=== PATIENT | female | born 1935 | race Hispanic/Latino ===

== ENCOUNTER 2018-03-04 09:35 | Inpatient (IN) | payer MEDICARE ==
[~2018-03-04] VITALS: Ht 287 cm; Wt 83.0 kg
[~2018-03-04 09:35] MED LIST: AMLO10TA2 PO; ATOR40TA69 PO; BENZ200C53 PO; CHOL500050 PO; CLOP75TA32 PO; DONE5TAB33 PO; HYDR100T27 PO; INSU100V12 SQ; LEVO25TA54 PO; LOSA25TA21 PO; MEMA10TA20 PO; METO25TA6 PO; OMEP40CA37 PO
[2018-03-04 09:49] LABS: BASOPHILS % (AUTO) 0.2 % (0.0-5.0); EOSINOPHILS % (AUTO) 1.5 % (0.0-8.0); HEMATOCRIT 22.7 % (36-48); LYMPHOCYTES % (AUTO) 7.2 % (21.0-51.0); MEAN CORPUSCULAR HEMOGLOBIN 30.1 pg (27.0-33.0); MEAN CORPUSCULAR HGB CONC 33.4 g/dL (32.0-36.0); MEAN CORPUSCULAR VOLUME 90.2 fL (79-99); MONOCYTES % (AUTO) 3.4 % (3.0-13.0); NEUTROPHILS % (AUTO) 87.7 % (40.0-77.0); PLATELET COUNT (AUTO) 150 K/uL (130-400); RED BLOOD CELL COUNT(AUTO) 2.51 MIL/uL (4.00-5.50); WHITE BLOOD COUNT (AUTO) 9.6 K/uL (4.8-10.8)
[2018-03-04 09:52] LABS: APPEARANCE,URINE Cloudy (CLEAR); BILIRUBIN,URINE Negative (NEGATIVE); COLOR,URINE Yellow (YELLOW); GLUCOSE, URINE (UA) Negative (NEGATIVE); KETONES,URINE Negative (NEGATIVE); LEUKOCYTE ESTERASE ,URINE Large (NEGATIVE); NITRATE,URINE Negative (NEGATIVE); OCCULT BLOOD,URINE Negative (NEGATIVE); PROTEIN,URINE POS 2+ (NEGATIVE)
[2018-03-04 09:57] LABS: CREATININE 2.8 mg/dL (0.5-1.5); POTASSIUM 5.5 mmol/L (3.5-5.1)
[2018-03-04 10:08] LABS: ALBUMIN 3.3 g/dL (3.5-5.0); BILIRUBIN,TOTAL 0.9 mg/dL (0.2-1.0); TOTAL PROTEIN, SERUM 7.3 g/dL (6.0-8.3)
[2018-03-04 10:09] LABS: BACTERIA,URINE Moderate /HPF (None Seen); COARSE GRANULAR CASTS,URINE 0-2 /LPF (None Seen); RBC,URINE None Seen /HPF (0-1); SQUAMOUS EPITHELIAL CELL,UR Few /HPF (0-2); WBC,URINE 26-50 /HPF (0-1)
[2018-03-04] MEDS ORDERED: ZOSYN 3.375GM+NS 50ML 50 ML IV ONE (10:15)
[2018-03-04 10:16] LABS: B-TYPE NATRIURETIC PEPTIDE 995 pg/mL (0-100)
[2018-03-04 10:28] LABS: CREATINE KINASE MB 0.7 ng/mL (0.5-3.6)
[2018-03-04] MEDS ORDERED: VANCOMYCIN 1GM+NS 250ML 250 ML IV ONE (11:03)
[2018-03-04] MEDS ORDERED: PANTOPRAZOLE SODIUM 40 MG TABLET.DR PO ONE (11:30)
[2018-03-04] MEDS ORDERED: INSULIN HUMULIN R 100 UNIT/ML 3ML ONE (11:32)
[2018-03-04] MEDS ORDERED: IPRATROPIUM/ALBUTEROL SULFATE 3 ML SOLUTION IH ONE (11:39)
[2018-03-04] MEDS ORDERED: ACETAMINOPHEN 325 MG TAB ONE (12:14)
[2018-03-04] MEDS ORDERED: ACETAMINOPHEN 325 MG TAB PO SCH (12:15)
[2018-03-04 14:33] VITALS: BP 129/67
[2018-03-04] MEDS ORDERED: VIT1TABL75 PO (15:02)
[2018-03-04] MEDS ORDERED: FURO40TA5 PO (15:02)
[2018-03-04] MEDS ORDERED: INSU100V12 SQ ×2 (15:02)
[2018-03-04] MEDS ORDERED: LEVO75 PO (15:02)
[2018-03-04] MEDS ORDERED: LORA10TA7 PO (15:02)
[2018-03-04] MEDS ORDERED: [UNRECOGNIZED DRUG - CODE] PO (15:02)
[2018-03-04] MEDS ORDERED: LEVO50 PO (15:02)
[2018-03-04] MEDS ORDERED: FERS325 PO (15:02)
[2018-03-04] MEDS ORDERED: FURO20TA4 PO (15:02)
[2018-03-04] MEDS ORDERED: ATOR40TA69 PO (15:02)
[2018-03-04] MEDS ORDERED: FOLI1TAB85 PO (15:02)
[2018-03-04 16:29] VITALS: BP 139/74
[2018-03-04] MEDS: INSULIN R PO SS1 SQ SCH ×2 (16:56→21:11)
[2018-03-04] MEDS: IPRATROPIUM/ALBUTEROL SULFATE 3 ML SOLUTION IH SCH ×2 (18:16→23:02)
[2018-03-04 19:00] VITALS: BP 153/62
[2018-03-04] MEDS: ZOSYN 3.375GM+NS 50ML 50 ML IV SCH (20:40)
[2018-03-04 23:00] VITALS: BP 143/57
[2018-03-05 03:00] VITALS: BP 142/56
[2018-03-05] MEDS: INSULIN R PO SS1 SQ SCH ×4 (05:37→23:49)
[2018-03-05 05:50] LABS: HEMATOCRIT 22.1 % (36-48); MEAN CORPUSCULAR HEMOGLOBIN 31.2 pg (27.0-33.0); MEAN CORPUSCULAR HGB CONC 35.7 g/dL (32.0-36.0); MEAN CORPUSCULAR VOLUME 87.4 fL (79-99); PLATELET COUNT (AUTO) 139 K/uL (130-400); RED BLOOD CELL COUNT(AUTO) 2.53 MIL/uL (4.00-5.50); RED CELL DISTRIBUTION WIDTH 18.5 % (11.0-15.5); WHITE BLOOD COUNT (AUTO) 6.8 K/uL (4.8-10.8)
[2018-03-05 06:03] LABS: ALBUMIN 2.8 g/dL (3.5-5.0); BILIRUBIN,TOTAL 0.7 mg/dL (0.2-1.0); CREATININE 2.9 mg/dL (0.5-1.5); POTASSIUM 5.1 mmol/L (3.5-5.1); TOTAL PROTEIN, SERUM 6.5 g/dL (6.0-8.3)
[2018-03-05] MEDS: IPRATROPIUM/ALBUTEROL SULFATE 3 ML SOLUTION IH SCH ×4 (06:22→23:30)
[2018-03-05 08:04] VITALS: BP 130/48
[2018-03-05] MEDS ORDERED: ERGOCALCIFEROL (VITAMIN D2) 50,000 UNIT CAPSULE PO SCH (09:00)
[2018-03-05] MEDS ORDERED: LEVOTHYROXINE 50 MCG TABLET PO SCH ×2 (09:00→10:48)
[2018-03-05] MEDS: ZOSYN 3.375GM+NS 50ML 50 ML IV SCH ×2 (09:26→23:45)
[2018-03-05] MEDS: PANTOPRAZOLE SODIUM 40 MG TABLET.DR PO SCH (09:29)
[2018-03-05] MEDS: CLOPIDOGREL BISULFATE 75 MG TAB PO SCH (09:29)
[2018-03-05] MEDS: AMLODIPINE BESYLATE 5 MG TAB PO SCH (09:30)
[2018-03-05] MEDS: METOPROLOL TARTRATE 25 MG TAB PO SCH ×2 (09:31→23:55)
[2018-03-05] MEDS: MULTIVITAMIN WITH MINERALS TABLET PO SCH (09:31)
[2018-03-05] MEDS: MEMANTINE HCL 5 MG TABLET PO SCH ×2 (09:31→23:55)
[2018-03-05] MEDS: HYDRALAZINE HCL 25 MG TABLET PO SCH ×3 (09:31→23:55)
[2018-03-05] MEDS: FOLIC ACID/VITAMIN B COMP W-C 1 MG CAPSULE PO SCH (09:31)
[2018-03-05] MEDS: FERROUS SULFATE 325 MG TABLET.DR PO SCH (09:32)
[2018-03-05] MEDS: VITAMIN B COMPLEX 1 CAPSULE PO SCH (09:33)
[2018-03-05] MEDS: LEVOTHYROXINE 75 MCG TABLET PO SCH (10:57)
[2018-03-05 11:24] VITALS: BP 144/54
[2018-03-05] MEDS ORDERED: EPOETIN ALFA 3,000 UNIT/ML ML SQ SCH (16:00)
[2018-03-05] MEDS ORDERED: SODIUM CHLORIDE 0.9% 500ML 500 ML IV SCH (16:00)
[2018-03-05 16:25] VITALS: BP 176/66
[2018-03-05 16:36] VITALS: BP 141/59
[2018-03-05 18:54] VITALS: BP 152/67
[2018-03-05] MEDS ORDERED: INSULIN GLARGINE 100 UNITS/ML 10 ML VIAL SQ SCH (21:00)
[2018-03-05] MEDS: DONEPEZIL HCL 5 MG TAB PO SCH (23:55)
[2018-03-05] MEDS: ATORVASTATIN CALCIUM 40 MG TABLET PO SCH (23:55)
[2018-03-05] MEDS: LORATADINE 10 MG TABLET PO SCH (23:56)
[2018-03-06] VITALS: BP 144/60
[2018-03-06] MEDS ORDERED: SODIUM CHLORIDE 0.9% 1000ML 1,000 ML IV SCH (00:30)
[2018-03-06 04:00] VITALS: BP 119/53
[2018-03-06 04:57] LABS: BASOPHILS % (AUTO) 0.4 % (0.0-5.0); EOSINOPHILS % (AUTO) 6.3 % (0.0-8.0); LYMPHOCYTES % (AUTO) 13.1 % (21.0-51.0); MEAN CORPUSCULAR HEMOGLOBIN 29.1 pg (27.0-33.0); MEAN CORPUSCULAR HGB CONC 33.4 g/dL (32.0-36.0); NEUTROPHILS % (AUTO) 74.2 % (40.0-77.0); PLATELET COUNT (AUTO) 149 K/uL (130-400); RED BLOOD CELL COUNT(AUTO) 2.52 MIL/uL (4.00-5.50); RED CELL DISTRIBUTION WIDTH 17.7 % (11.0-15.5); WHITE BLOOD COUNT (AUTO) 7.1 K/uL (4.8-10.8)
[2018-03-06 05:11] LABS: ALBUMIN 2.7 g/dL (3.5-5.0); BILIRUBIN,TOTAL 0.9 mg/dL (0.2-1.0); CREATININE 2.7 mg/dL (0.5-1.5); TOTAL PROTEIN, SERUM 6.4 g/dL (6.0-8.3)
[2018-03-06] MEDS: LEVOTHYROXINE 50 MCG TABLET PO SCH (05:32)
[2018-03-06] MEDS ORDERED: DEXTROSE 50%-WATER 50 ML DISP.SYRIN IV ONE (05:32)
[2018-03-06] MEDS ORDERED: DEXTROSE 50%-WATER 50 ML DISP.SYRIN IV PRN (06:30)
[2018-03-06] MEDS ORDERED: GLUCAGON 1MG KIT 1 MG ML IM PRN (06:30)
[2018-03-06] MEDS ORDERED: LEVOTHYROXINE 75 MCG TABLET PO SCH (06:30)
[2018-03-06] MEDS: INSULIN R PO SS1 SQ SCH ×4 (06:40→21:00)
[2018-03-06] MEDS: IPRATROPIUM/ALBUTEROL SULFATE 3 ML SOLUTION IH SCH ×4 (06:41→23:21)
[2018-03-06 07:59] VITALS: BP 125/44
[2018-03-06] MEDS: VANCOMYCIN 1GM+NS 250ML 250 ML IV SCH (09:11)
[2018-03-06] MEDS: VITAMIN B COMPLEX 1 CAPSULE PO SCH (09:11)
[2018-03-06] MEDS: FERROUS SULFATE 325 MG TABLET.DR PO SCH (09:12)
[2018-03-06] MEDS: FOLIC ACID/VITAMIN B COMP W-C 1 MG CAPSULE PO SCH (09:12)
[2018-03-06] MEDS: METOPROLOL TARTRATE 25 MG TAB PO SCH ×2 (09:12→21:57)
[2018-03-06] MEDS: HYDRALAZINE HCL 25 MG TABLET PO SCH ×3 (09:12→21:57)
[2018-03-06] MEDS: MULTIVITAMIN WITH MINERALS TABLET PO SCH (09:12)
[2018-03-06] MEDS: MEMANTINE HCL 5 MG TABLET PO SCH ×2 (09:12→21:57)
[2018-03-06] MEDS: PANTOPRAZOLE SODIUM 40 MG TABLET.DR PO SCH (09:13)
[2018-03-06] MEDS: CLOPIDOGREL BISULFATE 75 MG TAB PO SCH (09:13)
[2018-03-06 11:48] VITALS: BP 145/70
[2018-03-06] MEDS: ZOSYN 3.375GM+NS 50ML 50 ML IV SCH ×2 (12:09→21:56)
[2018-03-06] MEDS: AMLODIPINE BESYLATE 5 MG TAB PO SCH (12:09)
[2018-03-06] MEDS ORDERED: COMPOUND IV MISC 1 EACH IVSOLN MISC PRN (14:00)
[2018-03-06 15:12] LABS: % IRON SATURATION 13.9 % (22-44)
[2018-03-06] MEDS: IRON SUCROSE COMPLEX 100 MG in SODIUM CHLORIDE 0.9% 50 ML IV SCH (15:34)
[2018-03-06] MEDS: FOLIC ACID 1 MG TABLET PO SCH (15:35)
[2018-03-06] MEDS: CYANOCOBALAMIN (VITAMIN B-12) 1,000 MCG TABLET PO SCH (15:35)
[2018-03-06 16:25] VITALS: BP 111/55
[2018-03-06] MEDS: ACETAMINOPHEN 325 MG TAB PO PRN (16:41)
[2018-03-06 20:00] VITALS: BP 156/60
[2018-03-06] MEDS: ATORVASTATIN CALCIUM 40 MG TABLET PO SCH (21:56)
[2018-03-06] MEDS: LORATADINE 10 MG TABLET PO SCH (21:57)
[2018-03-06] MEDS: DONEPEZIL HCL 5 MG TAB PO SCH (21:57)
[2018-03-07] VITALS (7 sets, daily range): BP systolic 112–159; BP diastolic 53–70
[2018-03-07 04:15] LABS: BASOPHILS % (AUTO) 0.4 % (0.0-5.0); EOSINOPHILS % (AUTO) 7.9 % (0.0-8.0); HEMATOCRIT 24.3 % (36-48); LYMPHOCYTES % (AUTO) 12.8 % (21.0-51.0); MEAN CORPUSCULAR HEMOGLOBIN 31.7 pg (27.0-33.0); MEAN CORPUSCULAR HGB CONC 36.3 g/dL (32.0-36.0); MEAN CORPUSCULAR VOLUME 87.3 fL (79-99); NEUTROPHILS % (AUTO) 73.9 % (40.0-77.0); PLATELET COUNT (AUTO) 146 K/uL (130-400); RED BLOOD CELL COUNT(AUTO) 2.78 MIL/uL (4.00-5.50); RED CELL DISTRIBUTION WIDTH 16.4 % (11.0-15.5); WHITE BLOOD COUNT (AUTO) 6.8 K/uL (4.8-10.8)
[2018-03-07 04:27] LABS: ALBUMIN 2.8 g/dL (3.5-5.0); BILIRUBIN,TOTAL 1.1 mg/dL (0.2-1.0); CREATININE 2.8 mg/dL (0.5-1.5); POTASSIUM 5.2 mmol/L (3.5-5.1); TOTAL PROTEIN, SERUM 6.5 g/dL (6.0-8.3)
[2018-03-07] MEDS: INSULIN R PO SS1 SQ SCH ×2 (06:08→21:00)
[2018-03-07] MEDS: IPRATROPIUM/ALBUTEROL SULFATE 3 ML SOLUTION IH SCH ×4 (06:21→23:20)
[2018-03-07] MEDS: LEVOTHYROXINE 75 MCG TABLET PO SCH (07:25)
[2018-03-07] MEDS: VITAMIN B COMPLEX 1 CAPSULE PO SCH (10:28)
[2018-03-07] MEDS: AMLODIPINE BESYLATE 5 MG TAB PO SCH (10:28)
[2018-03-07] MEDS: FOLIC ACID/VITAMIN B COMP W-C 1 MG CAPSULE PO SCH (10:28)
[2018-03-07] MEDS: HYDRALAZINE HCL 25 MG TABLET PO SCH ×2 (10:28→15:04)
[2018-03-07] MEDS: CYANOCOBALAMIN (VITAMIN B-12) 1,000 MCG TABLET PO SCH (10:28)
[2018-03-07] MEDS: MEMANTINE HCL 5 MG TABLET PO SCH (10:29)
[2018-03-07] MEDS: METOPROLOL TARTRATE 25 MG TAB PO SCH (10:29)
[2018-03-07] MEDS: FOLIC ACID 1 MG TABLET PO SCH (10:29)
[2018-03-07] MEDS: FERROUS SULFATE 325 MG TABLET.DR PO SCH (10:30)
[2018-03-07] MEDS: MULTIVITAMIN WITH MINERALS TABLET PO SCH (10:30)
[2018-03-07] MEDS: PANTOPRAZOLE SODIUM 40 MG TABLET.DR PO SCH (10:30)
[2018-03-07] MEDS: CLOPIDOGREL BISULFATE 75 MG TAB PO SCH (10:31)
[2018-03-07] MEDS: ZOSYN 3.375GM+NS 50ML 50 ML IV SCH (10:32)
[2018-03-07] MEDS: IRON SUCROSE COMPLEX 100 MG in SODIUM CHLORIDE 0.9% 50 ML IV SCH (10:32)
[2018-03-07] MEDS: ACETAMINOPHEN 325 MG TAB PO PRN (15:05)
[2018-03-07] MEDS ORDERED: FUROSEMIDE 10 MG/ML 2ML VIAL IVP ONE (15:30)
[2018-03-07] MEDS: EPOETIN ALFA 3,000 UNIT/ML ML SQ SCH (23:29)
[2018-03-08] MEDS: ZOSYN 3.375GM+NS 50ML 50 ML IV SCH ×3 (00:46→22:06)
[2018-03-08] MEDS: DONEPEZIL HCL 5 MG TAB PO SCH ×2 (00:47→21:38)
[2018-03-08] MEDS: ATORVASTATIN CALCIUM 40 MG TABLET PO SCH ×2 (00:47→21:38)
[2018-03-08] MEDS: METOPROLOL TARTRATE 25 MG TAB PO SCH ×3 (00:47→21:39)
[2018-03-08] MEDS: MEMANTINE HCL 5 MG TABLET PO SCH ×3 (00:47→21:38)
[2018-03-08] MEDS: LORATADINE 10 MG TABLET PO SCH ×2 (00:47→21:38)
[2018-03-08] MEDS: HYDRALAZINE HCL 25 MG TABLET PO SCH ×4 (00:47→21:39)
[2018-03-08 03:48] VITALS: BP 138/56
[2018-03-08 03:54] LABS: BASOPHILS % (AUTO) 0.4 % (0.0-5.0); EOSINOPHILS % (AUTO) 4.6 % (0.0-8.0); HEMATOCRIT 25.2 % (36-48); MEAN CORPUSCULAR HEMOGLOBIN 29.7 pg (27.0-33.0); MEAN CORPUSCULAR HGB CONC 33.5 g/dL (32.0-36.0); MEAN CORPUSCULAR VOLUME 88.5 fL (79-99); MONOCYTES % (AUTO) 4.8 % (3.0-13.0); NEUTROPHILS % (AUTO) 80.2 % (40.0-77.0); PLATELET COUNT (AUTO) 137 K/uL (130-400); RED BLOOD CELL COUNT(AUTO) 2.85 MIL/uL (4.00-5.50); RED CELL DISTRIBUTION WIDTH 16.6 % (11.0-15.5); WHITE BLOOD COUNT (AUTO) 6.7 K/uL (4.8-10.8)
[2018-03-08 04:00] LABS: CREATININE 2.9 mg/dL (0.5-1.5); POTASSIUM 5.4 mmol/L (3.5-5.1)
[2018-03-08] MEDS: IPRATROPIUM/ALBUTEROL SULFATE 3 ML SOLUTION IH SCH ×4 (06:40→23:52)
[2018-03-08] MEDS: INSULIN R PO SS1 SQ SCH ×4 (07:16→21:32)
[2018-03-08] MEDS: LEVOTHYROXINE 50 MCG TABLET PO SCH (07:24)
[2018-03-08 08:01] VITALS: BP 146/61
[2018-03-08] MEDS: FUROSEMIDE 10 MG/ML 2ML VIAL IV SCH ×2 (08:04→21:38)
[2018-03-08] MEDS: IRON SUCROSE COMPLEX 100 MG in SODIUM CHLORIDE 0.9% 50 ML IV SCH (08:05)
[2018-03-08] MEDS: CYANOCOBALAMIN (VITAMIN B-12) 1,000 MCG TABLET PO SCH (08:08)
[2018-03-08] MEDS: VITAMIN B COMPLEX 1 CAPSULE PO SCH (08:08)
[2018-03-08] MEDS: PANTOPRAZOLE SODIUM 40 MG TABLET.DR PO SCH (08:09)
[2018-03-08] MEDS: CLOPIDOGREL BISULFATE 75 MG TAB PO SCH (08:09)
[2018-03-08] MEDS: MULTIVITAMIN WITH MINERALS TABLET PO SCH (08:09)
[2018-03-08] MEDS: FOLIC ACID/VITAMIN B COMP W-C 1 MG CAPSULE PO SCH (08:09)
[2018-03-08] MEDS: FERROUS SULFATE 325 MG TABLET.DR PO SCH (08:10)
[2018-03-08] MEDS: FOLIC ACID 1 MG TABLET PO SCH (08:10)
[2018-03-08] MEDS: AMLODIPINE BESYLATE 5 MG TAB PO SCH (08:10)
[2018-03-08] MEDS: VANCOMYCIN 1GM+NS 250ML 250 ML IV SCH (08:12)
[2018-03-08 11:30] VITALS: BP 138/61
[2018-03-08 16:33] VITALS: BP 112/55
[2018-03-08 19:45] VITALS: BP 148/67
[2018-03-09] VITALS: BP 130/50
[2018-03-09 04:10] VITALS: BP 141/52
[2018-03-09 04:29] LABS: HEMATOCRIT 25.2 % (36-48); MEAN CORPUSCULAR HEMOGLOBIN 30.8 pg (27.0-33.0); MEAN CORPUSCULAR HGB CONC 34.7 g/dL (32.0-36.0); MEAN CORPUSCULAR VOLUME 88.8 fL (79-99); PLATELET COUNT (AUTO) 150 K/uL (130-400); RED BLOOD CELL COUNT(AUTO) 2.84 MIL/uL (4.00-5.50); RED CELL DISTRIBUTION WIDTH 16.4 % (11.0-15.5); WHITE BLOOD COUNT (AUTO) 7.5 K/uL (4.8-10.8)
[2018-03-09 04:42] LABS: ALBUMIN 2.8 g/dL (3.5-5.0); BILIRUBIN,TOTAL 0.7 mg/dL (0.2-1.0); CREATININE 3.2 mg/dL (0.5-1.5); POTASSIUM 5.4 mmol/L (3.5-5.1); TOTAL PROTEIN, SERUM 6.7 g/dL (6.0-8.3)
[2018-03-09] MEDS: LEVOTHYROXINE 75 MCG TABLET PO SCH (05:32)
[2018-03-09] MEDS: INSULIN R PO SS1 SQ SCH ×3 (06:18→16:30)
[2018-03-09] MEDS: IPRATROPIUM/ALBUTEROL SULFATE 3 ML SOLUTION IH SCH ×3 (06:28→18:23)
[2018-03-09] MEDS ORDERED: FUROSEMIDE 20 MG TABLET PO SCH (07:00)
[2018-03-09] MEDS ORDERED: SODIUM POLYSTYRENE SULFONATE 15 GM/60 ML ML PO SCH (07:15)
[2018-03-09 08:00] VITALS: BP 147/57
[2018-03-09] MEDS: AMLODIPINE BESYLATE 5 MG TAB PO SCH (10:44)
[2018-03-09] MEDS: MULTIVITAMIN WITH MINERALS TABLET PO SCH (10:44)
[2018-03-09] MEDS: CLOPIDOGREL BISULFATE 75 MG TAB PO SCH (10:44)
[2018-03-09] MEDS: FOLIC ACID 1 MG TABLET PO SCH (10:44)
[2018-03-09] MEDS: METOPROLOL TARTRATE 25 MG TAB PO SCH (10:44)
[2018-03-09] MEDS: VITAMIN B COMPLEX 1 CAPSULE PO SCH (10:45)
[2018-03-09] MEDS: CYANOCOBALAMIN (VITAMIN B-12) 1,000 MCG TABLET PO SCH (10:45)
[2018-03-09] MEDS: FOLIC ACID/VITAMIN B COMP W-C 1 MG CAPSULE PO SCH (10:45)
[2018-03-09] MEDS: MEMANTINE HCL 5 MG TABLET PO SCH (10:45)
[2018-03-09] MEDS: FERROUS SULFATE 325 MG TABLET.DR PO SCH (10:45)
[2018-03-09] MEDS: PANTOPRAZOLE SODIUM 40 MG TABLET.DR PO SCH (10:45)
[2018-03-09] MEDS: HYDRALAZINE HCL 25 MG TABLET PO SCH ×2 (10:46→15:07)
[2018-03-09] MEDS: ZOSYN 3.375GM+NS 50ML 50 ML IV SCH (11:06)
[2018-03-09] MEDS: IRON SUCROSE COMPLEX 100 MG in SODIUM CHLORIDE 0.9% 50 ML IV SCH (11:06)
[2018-03-09 11:36] VITALS: BP 158/82
[2018-03-09] MEDS ORDERED: COMPOUND IV REFRIGERATED 1 EACH IVSOLN MISC PRN (11:45)
[2018-03-09] MEDS: EPOETIN ALFA 3,000 UNIT/ML ML SQ SCH (11:59)
[2018-03-09 16:00] VITALS: BP 119/53
[2018-03-12] MEDS ORDERED: METO5TAB2 PO (10:11)
[2018-03-12] MEDS ORDERED: FOLI0.8T43 PO (10:11)
[2018-03-12] MEDS ORDERED: VIT1TABL75 PO (10:11)
[2018-03-12] MEDS ORDERED: FOLI1TAB15 PO (10:11)
[2018-03-12] MEDS ORDERED: ESOM40CA54 PO (10:11)
[2018-03-12] MEDS ORDERED: FLUT1AER IH (19:19)
[2018-03-12] MEDS ORDERED: ERGO500014 PO (19:35)
[2018-03-15] MEDS ORDERED: FURO20TA4 PO (16:08)
[2018-03-15] MEDS ORDERED: DOXY100C40 PO (16:08)
== END 2018-03-09 19:30 | disposition home or self-care (01) | DRG 291 ==
LOC: EDH 09:35 → EDHIP 11:05 → 3CH 14:00
PROVIDERS: ADMIT Internal Medicine Nephrology; ATTEND Internal Medicine Nephrology
PROC: 30233N1 Transfusion of Nonautologous Red Blood Cells into Peripheral Vein, Percutaneous Approach (ICD-10-PCS; principal; 2018-03-05)
DX: I13.0 Hypertensive heart and chronic kidney disease with heart failure and stage 1 through stage 4 chronic kidney disease, or unspecified chronic kidney disease (principal); I50.33 Acute on chronic diastolic (congestive) heart failure; J96.21 Acute and chronic respiratory failure with hypoxia; J18.9 Pneumonia, unspecified organism; J81.1 Chronic pulmonary edema; J90 Pleural effusion, not elsewhere classified; N18.4 Chronic kidney disease, stage 4 (severe); N17.9 Acute kidney failure, unspecified; E11.21 Type 2 diabetes mellitus with diabetic nephropathy; E11.51 Type 2 diabetes mellitus with diabetic peripheral angiopathy without gangrene; E87.5 Hyperkalemia; N39.0 Urinary tract infection, site not specified; D63.8 Anemia in other chronic diseases classified elsewhere; E11.22 Type 2 diabetes mellitus with diabetic chronic kidney disease; D64.9 Anemia, unspecified; G30.9 Alzheimer's disease, unspecified; F02.80 Dementia in other diseases classified elsewhere, unspecified severity, without behavioral disturbance, psychotic disturbance, mood disturbance, and anxiety; E03.9 Hypothyroidism, unspecified; E78.5 Hyperlipidemia, unspecified; I12.9 Hypertensive chronic kidney disease with stage 1 through stage 4 chronic kidney disease, or unspecified chronic kidney disease; B96.20 Unspecified Escherichia coli [E. coli] as the cause of diseases classified elsewhere; D50.9 Iron deficiency anemia, unspecified; F32.9 Major depressive disorder, single episode, unspecified; G47.33 Obstructive sleep apnea (adult) (pediatric); Z74.01 Bed confinement status; Z87.01 Personal history of pneumonia (recurrent); Z87.440 Personal history of urinary (tract) infections; Z88.8 Allergy status to other drugs, medicaments and biological substances
CPT/HCPCS: 36415; 36430; 71045; 71250; 80048; 80053; 81001; 82270; 82553; 82728; 82947; 82948; 83540; 83550; 83605; 83880; 84484; 85025; 85027; 86850; 86900; 86901; 86922; 87040; 87088; 87186; 92610; 93005; 94640; 94664; 97039; J1756; J1815; J1940; J2543; J3370; J7070; P9016

== ENCOUNTER 2018-03-12 03:34 | Inpatient (IN) | payer MEDICARE ==
[~2018-03-12] VITALS: Ht 154.9 cm; Wt 79.0 kg
[~2018-03-12 03:34] MED LIST changes: -BENZ200C53 PO; +FERS325 PO; +FOLI1TAB85 PO; +FURO20TA4 PO; +FURO40TA5 PO; -LEVO25TA54 PO; +LEVO50 PO; +LEVO75 PO; +LORA10TA7 PO; +VIT1TABL75 PO; +[UNRECOGNIZED DRUG - CODE] PO
[2018-03-12] MEDS ORDERED: IPRATROPIUM/ALBUTEROL SULFATE 3 ML SOLUTION IH ONE (04:34)
[2018-03-12 04:44] LABS: APPEARANCE,URINE Cloudy (CLEAR); BILIRUBIN,URINE Negative (NEGATIVE); COLOR,URINE Dark Yellow (YELLOW); GLUCOSE, URINE (UA) Negative (NEGATIVE); KETONES,URINE Negative (NEGATIVE); LEUKOCYTE ESTERASE ,URINE Large (NEGATIVE); NITRATE,URINE Negative (NEGATIVE); OCCULT BLOOD,URINE Negative (NEGATIVE); PROTEIN,URINE POS 2+ (NEGATIVE)
[2018-03-12 04:45] LABS: BASOPHILS % (AUTO) 0.4 % (0.0-5.0); CREATININE 3.1 mg/dL (0.5-1.5); EOSINOPHILS % (AUTO) 1.5 % (0.0-8.0); HEMATOCRIT 26.5 % (36-48); LYMPHOCYTES % (AUTO) 3.4 % (21.0-51.0); MEAN CORPUSCULAR HEMOGLOBIN 30.2 pg (27.0-33.0); MEAN CORPUSCULAR HGB CONC 33.7 g/dL (32.0-36.0); MEAN CORPUSCULAR VOLUME 89.5 fL (79-99); MONOCYTES % (AUTO) 3.3 % (3.0-13.0); NEUTROPHILS % (AUTO) 91.4 % (40.0-77.0); PLATELET COUNT (AUTO) 152 K/uL (130-400); RED BLOOD CELL COUNT(AUTO) 2.96 MIL/uL (4.00-5.50); RED CELL DISTRIBUTION WIDTH 16.8 % (11.0-15.5); WHITE BLOOD COUNT (AUTO) 9.8 K/uL (4.8-10.8)
[2018-03-12 04:49] LABS: ABG BASE EXCESS -5.1 mmol/L (-2.0-3.0); ABG HCO3 22.1 mmol/L (21.0-28.0); ABG PCO2 49 mmHg (32-45)
[2018-03-12 05:00] LABS: B-TYPE NATRIURETIC PEPTIDE 1190 pg/mL (0-100)
[2018-03-12] MEDS ORDERED: FUROSEMIDE 10 MG/ML 4ML VIAL ONE (05:01)
[2018-03-12] MEDS ORDERED: NITROGLYCERIN 1GM/1 INCH PACKET TD ONE (05:01)
[2018-03-12 05:03] LABS: BACTERIA,URINE Few /HPF (None Seen); MUCUS,URINE Few LPF (None Seen); RBC,URINE 0-1 /HPF (0-1); SQUAMOUS EPITHELIAL CELL,UR Few /HPF (0-2); YEAST,URINE BUDDING Many /HPF (None Seen)
[2018-03-12 05:09] LABS: ALBUMIN 3.1 g/dL (3.5-5.0); BILIRUBIN,TOTAL 0.5 mg/dL (0.2-1.0); CREATINE KINASE MB 2.6 ng/mL (0.5-3.6); TOTAL PROTEIN, SERUM 6.5 g/dL (6.0-8.3)
[2018-03-12] MEDS ORDERED: ZOSYN 3.375GM+NS 50ML 50 ML IV ONE (05:20)
[2018-03-12] MEDS ORDERED: PANTOPRAZOLE SODIUM 40 MG TABLET.DR PO ONE (08:32)
[2018-03-12] MEDS ORDERED: VIT1TABL75 PO ×2 (10:11)
[2018-03-12] MEDS ORDERED: ESOM40CA54 PO ×2 (10:11)
[2018-03-12] MEDS ORDERED: CEPH500T PO (10:11)
[2018-03-12] MEDS ORDERED: FOLI0.8T43 PO ×2 (10:11)
[2018-03-12] MEDS ORDERED: FOLI1TAB15 PO ×2 (10:11)
[2018-03-12] MEDS ORDERED: METO5TAB2 PO ×2 (10:11)
[2018-03-12 16:00] VITALS: BP 175/70
[2018-03-12 19:00] VITALS: BP 175/70
[2018-03-12] MEDS ORDERED: FLUT1AER IH ×2 (19:19)
[2018-03-12] MEDS ORDERED: ERGO500014 PO ×2 (19:35)
[2018-03-12] MEDS ORDERED: GLUCAGON 1MG KIT 1 MG ML IM PRN (20:15)
[2018-03-12] MEDS ORDERED: ACETAMINOPHEN 325 MG TAB PO PRN (20:15)
[2018-03-12] MEDS ORDERED: IPRATROPIUM/ALBUTEROL SULFATE 3 ML SOLUTION IH PRN (20:15)
[2018-03-12] MEDS ORDERED: DEXTROSE 50%-WATER 50 ML DISP.SYRIN IV PRN (20:15)
[2018-03-12] MEDS: INSULIN R PO SS1 SQ SCH (20:16)
[2018-03-12] MEDS: FUROSEMIDE 10 MG/ML 4ML VIAL IVP SCH (20:25)
[2018-03-12] MEDS: ZOSYN 3.375GM+NS 50ML 50 ML IV SCH (20:25)
[2018-03-12 21:22] VITALS: BP 145/79
[2018-03-12 23:00] VITALS: BP 192/83
[2018-03-12] MEDS: IPRATROPIUM/ALBUTEROL SULFATE 3 ML SOLUTION IH SCH (23:47)
[2018-03-13] VITALS (7 sets, daily range): BP systolic 122–183; BP diastolic 62–90
[2018-03-13 04:46] LABS: BASOPHILS % (AUTO) 0.4 % (0.0-5.0); EOSINOPHILS % (AUTO) 4.5 % (0.0-8.0); HEMATOCRIT 25.1 % (36-48); LYMPHOCYTES % (AUTO) 10.3 % (21.0-51.0); MEAN CORPUSCULAR HEMOGLOBIN 30.6 pg (27.0-33.0); MEAN CORPUSCULAR HGB CONC 34.5 g/dL (32.0-36.0); MEAN CORPUSCULAR VOLUME 88.7 fL (79-99); MONOCYTES % (AUTO) 4.8 % (3.0-13.0); PLATELET COUNT (AUTO) 171 K/uL (130-400); RED BLOOD CELL COUNT(AUTO) 2.83 MIL/uL (4.00-5.50); RED CELL DISTRIBUTION WIDTH 17.3 % (11.0-15.5); WHITE BLOOD COUNT (AUTO) 6.5 K/uL (4.8-10.8)
[2018-03-13] MEDS: FUROSEMIDE 10 MG/ML 4ML VIAL IVP SCH ×2 (04:46→18:45)
[2018-03-13 05:05] LABS: CREATININE 2.9 mg/dL (0.5-1.5); POTASSIUM 4.6 mmol/L (3.5-5.1)
[2018-03-13 05:10] LABS: BILIRUBIN,TOTAL 0.7 mg/dL (0.2-1.0); TOTAL PROTEIN, SERUM 6.9 g/dL (6.0-8.3)
[2018-03-13] MEDS: INSULIN R PO SS1 SQ SCH ×4 (06:32→19:54)
[2018-03-13] MEDS: LEVOTHYROXINE 75 MCG TABLET PO SCH (06:35)
[2018-03-13] MEDS: METOCLOPRAMIDE 5 MG TABLET PO SCH ×3 (06:35→18:44)
[2018-03-13] MEDS: IPRATROPIUM/ALBUTEROL SULFATE 3 ML SOLUTION IH SCH ×4 (06:37→23:17)
[2018-03-13] MEDS: [UNRECOGNIZED DRUG - OTHER] PO SCH (09:00)
[2018-03-13] MEDS: METOPROLOL TARTRATE 25 MG TAB PO SCH ×2 (10:34→19:52)
[2018-03-13] MEDS: AMLODIPINE BESYLATE 5 MG TAB PO SCH (10:34)
[2018-03-13] MEDS: FOLIC ACID/VITAMIN B COMP W-C 1 MG CAPSULE PO SCH (10:34)
[2018-03-13] MEDS: HYDRALAZINE HCL 25 MG TABLET PO SCH ×3 (10:34→19:53)
[2018-03-13] MEDS: ATORVASTATIN CALCIUM 40 MG TABLET PO SCH (10:34)
[2018-03-13] MEDS: MULTIVITAMIN WITH MINERALS TABLET PO SCH (10:34)
[2018-03-13] MEDS: MEMANTINE HCL 5 MG TABLET PO SCH ×2 (10:35→19:52)
[2018-03-13] MEDS: FERROUS SULFATE 325 MG TABLET.DR PO SCH (10:35)
[2018-03-13] MEDS: CLOPIDOGREL BISULFATE 75 MG TAB PO SCH (10:35)
[2018-03-13] MEDS: PANTOPRAZOLE SODIUM 40 MG TABLET.DR PO SCH (10:35)
[2018-03-13] MEDS: FOLIC ACID 1 MG TABLET PO SCH (10:35)
[2018-03-13] MEDS: ZOSYN 3.375GM+NS 50ML 50 ML IV SCH ×2 (10:42→19:53)
[2018-03-13] MEDS: BUDESONIDE 0.5 MG/2 ML INH IH SCH (18:24)
[2018-03-13] MEDS: LORATADINE 10 MG TABLET PO SCH (19:52)
[2018-03-13] MEDS: DONEPEZIL HCL 5 MG TAB PO SCH (19:53)
[2018-03-14 03:00] VITALS: BP 160/73
[2018-03-14 04:45] LABS: BASOPHILS % (AUTO) 0.3 % (0.0-5.0); EOSINOPHILS % (AUTO) 3.7 % (0.0-8.0); HEMATOCRIT 25.4 % (36-48); LYMPHOCYTES % (AUTO) 10.7 % (21.0-51.0); MEAN CORPUSCULAR HEMOGLOBIN 30.2 pg (27.0-33.0); MEAN CORPUSCULAR VOLUME 88.7 fL (79-99); MONOCYTES % (AUTO) 4.9 % (3.0-13.0); NEUTROPHILS % (AUTO) 80.4 % (40.0-77.0); PLATELET COUNT (AUTO) 169 K/uL (130-400); RED BLOOD CELL COUNT(AUTO) 2.86 MIL/uL (4.00-5.50)
[2018-03-14 04:55] LABS: CREATININE 2.6 mg/dL (0.5-1.5); POTASSIUM 4.5 mmol/L (3.5-5.1)
[2018-03-14] MEDS: INSULIN R PO SS1 SQ SCH ×4 (05:50→21:35)
[2018-03-14] MEDS: METOCLOPRAMIDE 5 MG TABLET PO SCH ×3 (06:09→17:41)
[2018-03-14] MEDS: FUROSEMIDE 10 MG/ML 4ML VIAL IVP SCH (06:10)
[2018-03-14] MEDS: LEVOTHYROXINE 50 MCG TABLET PO SCH (06:35)
[2018-03-14] MEDS: IPRATROPIUM/ALBUTEROL SULFATE 3 ML SOLUTION IH SCH ×4 (06:49→23:05)
[2018-03-14] MEDS: BUDESONIDE 0.5 MG/2 ML INH IH SCH ×2 (06:49→18:20)
[2018-03-14 07:15] VITALS: BP 179/73
[2018-03-14] MEDS: [UNRECOGNIZED DRUG - OTHER] PO SCH (09:00)
[2018-03-14] MEDS: CLOPIDOGREL BISULFATE 75 MG TAB PO SCH (09:04)
[2018-03-14] MEDS: AMLODIPINE BESYLATE 5 MG TAB PO SCH (09:04)
[2018-03-14] MEDS: ZOSYN 3.375GM+NS 50ML 50 ML IV SCH ×2 (09:04→21:17)
[2018-03-14] MEDS: PANTOPRAZOLE SODIUM 40 MG TABLET.DR PO SCH (09:04)
[2018-03-14] MEDS: FOLIC ACID 1 MG TABLET PO SCH (09:05)
[2018-03-14] MEDS: MULTIVITAMIN WITH MINERALS TABLET PO SCH (09:05)
[2018-03-14] MEDS: FERROUS SULFATE 325 MG TABLET.DR PO SCH (09:05)
[2018-03-14] MEDS: FOLIC ACID/VITAMIN B COMP W-C 1 MG CAPSULE PO SCH (09:05)
[2018-03-14] MEDS: MEMANTINE HCL 5 MG TABLET PO SCH ×2 (09:06→21:17)
[2018-03-14] MEDS: HYDRALAZINE HCL 25 MG TABLET PO SCH ×3 (09:06→21:16)
[2018-03-14] MEDS: ATORVASTATIN CALCIUM 40 MG TABLET PO SCH (09:06)
[2018-03-14] MEDS: METOPROLOL TARTRATE 25 MG TAB PO SCH ×2 (09:06→21:17)
[2018-03-14] MEDS ORDERED: EPOETIN ALFA 3,000 UNIT/ML ML SQ SCH (10:30)
[2018-03-14 11:00] VITALS: BP 138/54
[2018-03-14] MEDS: FUROSEMIDE 20 MG TABLET PO SCH (14:46)
[2018-03-14 15:00] VITALS: BP 152/60
[2018-03-14 15:18] LABS: ABG BASE EXCESS 1.5 mmol/L (-2.0-3.0); ABG HCO3 27.2 mmol/L (21.0-28.0); ABG OXYGEN SATURATION 94.4 % (95.0-99.0); ABG PCO2 47 mmHg (32-45)
[2018-03-14 19:05] VITALS: BP 138/55
[2018-03-14] MEDS: DONEPEZIL HCL 5 MG TAB PO SCH (21:17)
[2018-03-14] MEDS: LORATADINE 10 MG TABLET PO SCH (21:17)
[2018-03-14 23:10] VITALS: BP 153/59
[2018-03-15] MEDS: FUROSEMIDE 20 MG TABLET PO SCH ×2 (02:15→15:05)
[2018-03-15 03:15] VITALS: BP 147/59
[2018-03-15 04:39] LABS: BASOPHILS % (AUTO) 0.4 % (0.0-5.0); EOSINOPHILS % (AUTO) 3.6 % (0.0-8.0); HEMATOCRIT 25.1 % (36-48); LYMPHOCYTES % (AUTO) 11.8 % (21.0-51.0); MEAN CORPUSCULAR HEMOGLOBIN 31.6 pg (27.0-33.0); MEAN CORPUSCULAR HGB CONC 35.7 g/dL (32.0-36.0); MEAN CORPUSCULAR VOLUME 88.4 fL (79-99); MONOCYTES % (AUTO) 6.7 % (3.0-13.0); NEUTROPHILS % (AUTO) 77.5 % (40.0-77.0); PLATELET COUNT (AUTO) 166 K/uL (130-400); RED BLOOD CELL COUNT(AUTO) 2.84 MIL/uL (4.00-5.50); RED CELL DISTRIBUTION WIDTH 16.4 % (11.0-15.5); WHITE BLOOD COUNT (AUTO) 6.2 K/uL (4.8-10.8)
[2018-03-15 04:52] LABS: CREATININE 2.4 mg/dL (0.5-1.5); POTASSIUM 4.2 mmol/L (3.5-5.1)
[2018-03-15] MEDS: LEVOTHYROXINE 50 MCG TABLET PO SCH ×2 (05:57→09:46)
[2018-03-15] MEDS: INSULIN R PO SS1 SQ SCH ×3 (06:49→17:24)
[2018-03-15] MEDS: BUDESONIDE 0.5 MG/2 ML INH IH SCH ×2 (07:17→18:15)
[2018-03-15] MEDS: IPRATROPIUM/ALBUTEROL SULFATE 3 ML SOLUTION IH SCH ×3 (07:17→18:15)
[2018-03-15 08:00] VITALS: BP 166/71
[2018-03-15] MEDS: [UNRECOGNIZED DRUG - OTHER] PO SCH (09:00)
[2018-03-15] MEDS: MULTIVITAMIN WITH MINERALS TABLET PO SCH (09:46)
[2018-03-15] MEDS: CLOPIDOGREL BISULFATE 75 MG TAB PO SCH (09:46)
[2018-03-15] MEDS: PANTOPRAZOLE SODIUM 40 MG TABLET.DR PO SCH (09:46)
[2018-03-15] MEDS: FOLIC ACID/VITAMIN B COMP W-C 1 MG CAPSULE PO SCH (09:46)
[2018-03-15] MEDS: FOLIC ACID 1 MG TABLET PO SCH (09:46)
[2018-03-15] MEDS: FERROUS SULFATE 325 MG TABLET.DR PO SCH (09:46)
[2018-03-15] MEDS: METOCLOPRAMIDE 5 MG TABLET PO SCH ×3 (09:47→17:27)
[2018-03-15] MEDS: ATORVASTATIN CALCIUM 40 MG TABLET PO SCH (09:47)
[2018-03-15] MEDS: AMLODIPINE BESYLATE 5 MG TAB PO SCH (09:48)
[2018-03-15] MEDS: METOPROLOL TARTRATE 25 MG TAB PO SCH (09:48)
[2018-03-15] MEDS: MEMANTINE HCL 5 MG TABLET PO SCH (09:48)
[2018-03-15] MEDS: HYDRALAZINE HCL 25 MG TABLET PO SCH ×2 (09:48→15:06)
[2018-03-15] MEDS: ZOSYN 3.375GM+NS 50ML 50 ML IV SCH (09:49)
[2018-03-15] MEDS: LEVOTHYROXINE 75 MCG TABLET PO SCH (09:57)
[2018-03-15 11:00] VITALS: BP 155/72
[2018-03-15 16:00] VITALS: BP 145/57
[2018-03-15] MEDS ORDERED: FURO20TA4 PO ×2 (16:08)
[2018-03-15] MEDS ORDERED: DOXY100C40 PO ×2 (16:08)
[2018-03-19] MEDS ORDERED: ERGOCALCIFEROL (VITAMIN D2) 50,000 UNIT CAPSULE PO SCH ×2 (09:00)
== END 2018-03-15 19:00 | disposition home health service (06) | DRG 291 ==
LOC: EDH 03:34 → EDHIP 05:20 → OBSVTOIN 05:20 → 3AH 17:41
PROVIDERS: ADMIT Internal Medicine Nephrology; ATTEND Internal Medicine Nephrology
DX: I13.0 Hypertensive heart and chronic kidney disease with heart failure and stage 1 through stage 4 chronic kidney disease, or unspecified chronic kidney disease (principal); J81.0 Acute pulmonary edema; J96.02 Acute respiratory failure with hypercapnia; J18.9 Pneumonia, unspecified organism; N17.9 Acute kidney failure, unspecified; N18.4 Chronic kidney disease, stage 4 (severe); E11.21 Type 2 diabetes mellitus with diabetic nephropathy; E11.51 Type 2 diabetes mellitus with diabetic peripheral angiopathy without gangrene; D64.9 Anemia, unspecified; G30.9 Alzheimer's disease, unspecified; F02.80 Dementia in other diseases classified elsewhere, unspecified severity, without behavioral disturbance, psychotic disturbance, mood disturbance, and anxiety; I50.33 Acute on chronic diastolic (congestive) heart failure; N39.0 Urinary tract infection, site not specified; E11.22 Type 2 diabetes mellitus with diabetic chronic kidney disease; N18.9 Chronic kidney disease, unspecified; F32.9 Major depressive disorder, single episode, unspecified; E03.9 Hypothyroidism, unspecified; E78.5 Hyperlipidemia, unspecified; G47.33 Obstructive sleep apnea (adult) (pediatric); Z87.01 Personal history of pneumonia (recurrent)
CPT/HCPCS: 36415; 36600; 71045; 80048; 80053; 81001; 82550; 82553; 82803; 82948; 83880; 84484; 85025; 87088; 87186; 93005; 93306; 94640; 94660; 94664; 94760; 97039; J1815; J1940; J2543

== ENCOUNTER 2018-03-16 07:56 | Emergency (ER) | payer MEDICARE ==
[~2018-03-16 07:56] MED LIST changes: +CEPH500T PO; +DOXY100C40 PO; +ERGO500014 PO; +ESOM40CA54 PO; +FLUT1AER IH; +FOLI0.8T43 PO; +FOLI1TAB15 PO; +METO5TAB2 PO
== END 2018-03-16 09:13 | disposition home or self-care (01) ==
LOC: EDH 07:56
DX: T83.091A Other mechanical complication of indwelling urethral catheter, initial encounter (principal); R33.9 Retention of urine, unspecified; E11.9 Type 2 diabetes mellitus without complications; E78.5 Hyperlipidemia, unspecified; I10 Essential (primary) hypertension; Z79.4 Long term (current) use of insulin; Z88.6 Allergy status to analgesic agent
CPT/HCPCS: 51702

== ENCOUNTER 2020-08-08 13:52 | Inpatient (IN) | payer MEDICARE ==
[~2020-08-08] VITALS: Ht 154.9 cm; Wt 71.0 kg
[~2020-08-08 13:52] MED LIST changes: +AMLO-258 PO; -AMLO10TA2 PO; +AMLO5TAB4 PO; +ATOR40TA71 PO; -CEPH500T PO; +CLOP75TA14 PO; +DONE5TAB3 PO; -FOLI1TAB85 PO; -FURO40TA5 PO; -LOSA25TA21 PO; -MEMA10TA20 PO; +MEMA10TA55 PO; +MULT-1329 PO; -OMEP40CA37 PO; +SERT25TA PO; +TOLT2TAB PO; +TRAZ-185 PO; -[UNRECOGNIZED DRUG - CODE] PO
[2020-08-08 15:04] LABS: BASOPHILS % (AUTO) 0.3 % (0.0-5.0); EOSINOPHILS % (AUTO) 1.2 % (0.0-8.0); LYMPHOCYTES % (AUTO) 8.6 % (21.0-51.0); MEAN CORPUSCULAR HEMOGLOBIN 31.1 pg (27.0-33.0); MEAN CORPUSCULAR VOLUME 97.1 fL (79-99); MONOCYTES % (AUTO) 2.4 % (3.0-13.0); NEUTROPHILS % (AUTO) 86.9 % (40.0-77.0); PLATELET COUNT (AUTO) 121 K/uL (130-400); RED BLOOD CELL COUNT(AUTO) 3.09 MIL/uL (4.00-5.50); RED CELL DISTRIBUTION WIDTH 13.5 % (11.0-15.5); WHITE BLOOD COUNT (AUTO) 11.7 K/uL (4.8-10.8)
[2020-08-08 15:12] LABS: CREATININE 2.9 mg/dL (0.5-1.5)
[2020-08-08 15:15] LABS: INR 0.98 (0.85-1.15); PARTIAL THROMBOPLASTIN TIME 22.9 SEC (26.3-35.5); PROTHROMBIN TIME 10.6 SEC (9.6-11.6)
[2020-08-08 15:17] LABS: ALBUMIN 3.2 g/dL (3.5-5.0); BILIRUBIN,TOTAL 0.6 mg/dL (0.2-1.0); TOTAL PROTEIN, SERUM 6.8 g/dL (6.0-8.3)
[2020-08-08 15:35] LABS: APPEARANCE,URINE CLOUDY (CLEAR); BILIRUBIN,URINE NEGATIVE (NEGATIVE); COLOR,URINE YELLOW (YELLOW); GLUCOSE, URINE (UA) NEGATIVE (NEGATIVE); KETONES,URINE NEGATIVE (NEGATIVE); LEUKOCYTE ESTERASE ,URINE SMALL (NEGATIVE); NITRATE,URINE NEGATIVE (NEGATIVE); OCCULT BLOOD,URINE TRACE-INTACT (NEGATIVE); PH,URINE 5.5 (5.0-8.0); PROTEIN,URINE 100 mg/dL (NEGATIVE); UROBILINOGEN,URINE 0.2 mg/dL (0.2-1.0)
[2020-08-08 15:45] LABS: BACTERIA,URINE Moderate /HPF (None Seen)
[2020-08-08 15:46] LABS: SQUAMOUS EPITHELIAL CELL,UR Few /HPF (0-2)
[2020-08-08] MEDS ORDERED: NITROGLYCERIN 0.4 MG SL TAB SL PRN (16:30)
[2020-08-08] MEDS ORDERED: SODIUM CHLORIDE 0.9% 1000ML 1,000 ML IV SCH (16:30)
[2020-08-08] MEDS: CEFTRIAXONE SODIUM 1 GM IVP SCH (16:30)
[2020-08-08] MEDS ORDERED: LACTULOSE 20 GM/30 ML UDCUP PO PRN (16:30)
[2020-08-08] MEDS ORDERED: HYDRALAZINE HCL 20 MG/ML VIAL IV PRN (17:00)
[2020-08-08] MEDS ORDERED: HYDRALAZINE HCL 20 MG/ML VIAL ONE (17:08)
[2020-08-08] MEDS ORDERED: SODIUM CHLORIDE 0.9% 1000ML 1,000 ML IV ONE (17:09)
[2020-08-08] MEDS ORDERED: MEPERIDINE-PF 25 MG/ML SYG ONE (17:09)
[2020-08-08] MEDS ORDERED: CEFTRIAXONE SODIUM 1 GM ONE (17:09)
[2020-08-08 17:52] LABS: CREATININE,URINE RANDOM 19 mg/dL (30-135); SODIUM,URINE RANDOM 113 mmol/l (40-220)
[2020-08-08 18:30] VITALS: BP 152/57
[2020-08-08] MEDS ORDERED: ATOR40TA71 PO (18:46)
[2020-08-08] MEDS ORDERED: INSU100I21 SQ (18:46)
[2020-08-08] MEDS ORDERED: FURO20TA4 PO (18:46)
[2020-08-08] MEDS ORDERED: DONE5TAB33 PO (18:46)
[2020-08-08] MEDS ORDERED: MULT-1203 PO (18:46)
[2020-08-08] MEDS ORDERED: LEVO75TA10 PO (18:46)
[2020-08-08] MEDS ORDERED: LOSA25TA41 PO (18:46)
[2020-08-08] MEDS ORDERED: METO-408 PO (18:46)
[2020-08-08] MEDS ORDERED: FOLI0.8T22 PO (18:46)
[2020-08-08] MEDS ORDERED: MEMA10TA55 PO (18:46)
[2020-08-08] MEDS ORDERED: ERGO2000 PO (18:52)
[2020-08-08] MEDS ORDERED: AMLO-258 PO (18:52)
[2020-08-08] MEDS ORDERED: ESOM40CA PO (18:52)
[2020-08-08] MEDS ORDERED: FERS325 PO (18:52)
[2020-08-08] MEDS ORDERED: HYDR100T27 PO (18:52)
--- NOTE | 2020-08-08 19:00 | NUR ---
NOTIFIED DR JOSE DANIEL ALEX FOR CONSULT,CAMILO ALSO WAS PAGED AND DR RECINOS.
--- NOTE | 2020-08-08 19:44 | NUR ---
PER DAUGHTER IN LAW KACEY INSERTED BY SPECIALIST 08/06 IN CLINIC Addendum: 08/08/20 at 1956 by DREW QUEVEDO RN RN Amended: Links added.
[2020-08-08 20:00] VITALS: BP 163/61
[2020-08-08] MEDS: INSULIN HUMULIN R 100 UNIT/ML 3ML SQ SCH (21:00)
[2020-08-08] MEDS: MEPERIDINE-PF 25 MG/ML SYG IV PRN (23:20)
[2020-08-09] VITALS (7 sets, daily range): BP systolic 144–168; BP diastolic 53–73
[2020-08-09] MEDS: ONDANSETRON HCL 4 MG/2 ML VIAL IV PRN ×3 (01:24→21:43)
[2020-08-09] MEDS: MEPERIDINE-PF 25 MG/ML SYG IV PRN (04:51)
[2020-08-09] MEDS: HYDRALAZINE HCL 25 MG TABLET PO SCH ×3 (05:34→21:43)
[2020-08-09] MEDS: INSULIN HUMULIN R 100 UNIT/ML 3ML SQ SCH ×4 (06:17→20:30)
[2020-08-09 07:07] LABS: BASOPHILS % (AUTO) 0.1 % (0.0-5.0); EOSINOPHILS % (AUTO) 0.5 % (0.0-8.0); HEMATOCRIT 29.6 % (36-48); MEAN CORPUSCULAR HEMOGLOBIN 30.2 pg (27.0-33.0); MEAN CORPUSCULAR HGB CONC 32.1 g/dL (32.0-36.0); MONOCYTES % (AUTO) 3.8 % (3.0-13.0); NEUTROPHILS % (AUTO) 85.2 % (40.0-77.0); PLATELET COUNT (AUTO) 110 K/uL (130-400); RED BLOOD CELL COUNT(AUTO) 3.15 MIL/uL (4.00-5.50); RED CELL DISTRIBUTION WIDTH 13.2 % (11.0-15.5); WHITE BLOOD COUNT (AUTO) 9.8 K/uL (4.8-10.8)
[2020-08-09 07:39] LABS: CREATININE 2.4 mg/dL (0.5-1.5); POTASSIUM 4.5 mmol/L (3.5-5.1); THYROID STIMULATING HORMONE 0.57 uIU/mL (0.36-3.74)
[2020-08-09] MEDS: FERROUS SULFATE 325 MG TABLET.DR PO SCH (08:24)
[2020-08-09] MEDS: Vitamin B Complex/Vit C/Folic Acid PO SCH (08:24)
[2020-08-09] MEDS: LEVOTHYROXINE 75 MCG TABLET PO SCH (08:25)
[2020-08-09] MEDS: FUROSEMIDE 20 MG TABLET PO SCH (08:25)
[2020-08-09] MEDS: PANTOPRAZOLE SODIUM 40 MG TABLET.DR PO SCH (08:25)
[2020-08-09] MEDS: MEMANTINE HCL 5 MG TABLET PO SCH ×2 (08:25→20:17)
[2020-08-09] MEDS: AMLODIPINE BESYLATE 5 MG TAB PO SCH (08:26)
[2020-08-09] MEDS: ENOXAPARIN SODIUM 30 MG/0.3 ML SQ SCH (08:27)
[2020-08-09] MEDS ORDERED: FAMOTIDINE/PF 20 MG/2 ML VIAL IV SCH (09:00)
[2020-08-09] MEDS ORDERED: METOPROLOL SUCCINATE 50 MG TAB.SR.24H PO SCH (09:00)
[2020-08-09] MEDS: ACETAMINOPHEN 325 MG TAB PO PRN ×2 (16:32→21:44)
[2020-08-09] MEDS: CEFTRIAXONE SODIUM 1 GM IVP SCH (16:32)
--- NOTE | 2020-08-09 17:23 | NUR ---
INITIAL: Met w pt and dtr in law this afternoon to discuss dcp. Pt mentions that prior to admission she was living w her son and dtr law. She uses a rollator for ambulation and requires assist w ADLs. Pt mentions that her dtr in law is her provider 36hr/week. Pt also has at home a shower chair and home O2. She states that she was receiving HH services from [facility]. Per pt she feels safe and comfortable to [place]. Pt not willing to consider short term SNF/Rehab at this time. CM to continue to follow and wait for Md recommendations. Addendum: 08/09/20 at 1725 by DARSHAN ANTONIO Amended: Links added.
[2020-08-09] MEDS: DONEPEZIL HCL 5 MG TAB PO SCH (20:17)
[2020-08-09] MEDS: ATORVASTATIN CALCIUM 40 MG TABLET PO SCH (20:17)
[2020-08-09] MEDS: METOPROLOL SUCCINATE 50 MG TAB.SR.24H PO SCH (20:17)
[2020-08-10 04:00] VITALS: BP 131/74
[2020-08-10] MEDS: ACETAMINOPHEN 325 MG TAB PO PRN ×2 (04:26→11:11)
[2020-08-10 05:29] LABS: BASOPHILS % (AUTO) 0.2 % (0.0-5.0); EOSINOPHILS % (AUTO) 0.3 % (0.0-8.0); HEMATOCRIT 28.5 % (36-48); MEAN CORPUSCULAR HEMOGLOBIN 30.5 pg (27.0-33.0); MEAN CORPUSCULAR HGB CONC 32.3 g/dL (32.0-36.0); MEAN CORPUSCULAR VOLUME 94.4 fL (79-99); MONOCYTES % (AUTO) 4.1 % (3.0-13.0); NEUTROPHILS % (AUTO) 86.8 % (40.0-77.0); PLATELET COUNT (AUTO) 104 K/uL (130-400); RED BLOOD CELL COUNT(AUTO) 3.02 MIL/uL (4.00-5.50); RED CELL DISTRIBUTION WIDTH 13.2 % (11.0-15.5); WHITE BLOOD COUNT (AUTO) 10.7 K/uL (4.8-10.8)
[2020-08-10 05:48] LABS: ALBUMIN 2.5 g/dL (3.5-5.0); BILIRUBIN,TOTAL 0.8 mg/dL (0.2-1.0); CREATININE 2.6 mg/dL (0.5-1.5); MAGNESIUM 2.7 mg/dL (1.80-2.40); PHOSPHORUS 4.5 mg/dL (2.5-4.9); POTASSIUM 4.4 mmol/L (3.5-5.1)
[2020-08-10 05:54] LABS: % IRON SATURATION 10.1 % (22-44)
[2020-08-10] MEDS: HYDRALAZINE HCL 25 MG TABLET PO SCH ×3 (05:57→20:20)
[2020-08-10] MEDS: INSULIN HUMULIN R 100 UNIT/ML 3ML SQ SCH ×4 (06:09→21:42)
[2020-08-10 08:00] VITALS: BP 155/66
--- NOTE | 2020-08-10 09:00 | NUR ---
DR. RECINOS AWARE OF CASE STATES I AM HERE AT THE HOSPITAL WILL SEE PATIENT IN A FEW MINUTES BUT NPO TONIGHT THEN SURGERY TOMORROW. AWARE OF PENDING CARDIAC CLEARANCE. STATES OKAY SET UP SURGERY FOR TOMORROW AT 0900AM. [facility] [employer] AWARE OF ORDER TO SCHEDULE.
--- NOTE | 2020-08-10 10:30 | NUR ---
CALLED DR. VASQUEZ AND DR. DIXON RE; PAIN MED DUE TO RENAL DISEASE. DR. DIXON STATES WILL SEE PATIENT LATER, PER HOSPITALIST OKAY TO ADD TYLENOL FOR PAIN LEVEL OF 1-5.
[2020-08-10] MEDS: FUROSEMIDE 20 MG TABLET PO SCH (11:08)
[2020-08-10] MEDS: Vitamin B Complex/Vit C/Folic Acid PO SCH (11:08)
[2020-08-10] MEDS: LEVOTHYROXINE 75 MCG TABLET PO SCH (11:08)
[2020-08-10] MEDS: AMLODIPINE BESYLATE 5 MG TAB PO SCH (11:09)
[2020-08-10] MEDS: METOPROLOL SUCCINATE 50 MG TAB.SR.24H PO SCH (11:09)
[2020-08-10] MEDS: MEMANTINE HCL 5 MG TABLET PO SCH ×2 (11:09→20:19)
[2020-08-10] MEDS: PANTOPRAZOLE SODIUM 40 MG TABLET.DR PO SCH (11:10)
[2020-08-10] MEDS: ENOXAPARIN SODIUM 30 MG/0.3 ML SQ SCH (11:38)
[2020-08-10 12:00] VITALS: BP 108/53
[2020-08-10] MEDS: FERROUS SULFATE 325 MG TABLET.DR PO SCH (13:45)
[2020-08-10 16:00] VITALS: BP 130/57
[2020-08-10] MEDS: CEFTRIAXONE SODIUM 1 GM IVP SCH (17:35)
--- NOTE | 2020-08-10 19:01 | NUR ---
DR. PAGE AWARE OF 2D ECHO READY STATES I AM WRITING A NOTE RIGHT NOW.
[2020-08-10 19:05] VITALS: BP 175/69
[2020-08-10] MEDS: DONEPEZIL HCL 5 MG TAB PO SCH (20:20)
[2020-08-10 23:35] VITALS: BP 130/58
[2020-08-11] VITALS (29 sets, daily range): BP systolic 129–179; BP diastolic 52–81
[2020-08-11 04:22] LABS: BASOPHILS % (AUTO) 0.1 % (0.0-5.0); EOSINOPHILS % (AUTO) 0.3 % (0.0-8.0); HEMATOCRIT 25.1 % (36-48); LYMPHOCYTES % (AUTO) 10.4 % (21.0-51.0); MEAN CORPUSCULAR HEMOGLOBIN 30.5 pg (27.0-33.0); MEAN CORPUSCULAR HGB CONC 32.7 g/dL (32.0-36.0); MEAN CORPUSCULAR VOLUME 93.3 fL (79-99); MONOCYTES % (AUTO) 4.3 % (3.0-13.0); NEUTROPHILS % (AUTO) 84.1 % (40.0-77.0); PLATELET COUNT (AUTO) 97 K/uL (130-400); RED BLOOD CELL COUNT(AUTO) 2.69 MIL/uL (4.00-5.50); RED CELL DISTRIBUTION WIDTH 12.9 % (11.0-15.5); WHITE BLOOD COUNT (AUTO) 9.3 K/uL (4.8-10.8)
[2020-08-11 04:49] LABS: CREATININE 2.7 mg/dL (0.5-1.5); POTASSIUM 4.4 mmol/L (3.5-5.1)
[2020-08-11] MEDS: HYDROMORPHONE HCL 0.5 MG/0.5 ML ML IVP PRN ×2 (05:32→22:14)
[2020-08-11] MEDS: HYDRALAZINE HCL 25 MG TABLET PO SCH ×3 (06:00→20:25)
[2020-08-11] MEDS: INSULIN HUMULIN R 100 UNIT/ML 3ML SQ SCH ×4 (06:16→20:24)
[2020-08-11] MEDS: FERROUS SULFATE 325 MG TABLET.DR PO SCH (08:00)
[2020-08-11] MEDS: AMLODIPINE BESYLATE 5 MG TAB PO SCH (09:00)
[2020-08-11] MEDS: Vitamin B Complex/Vit C/Folic Acid PO SCH (09:00)
[2020-08-11] MEDS: LEVOTHYROXINE 75 MCG TABLET PO SCH (09:00)
[2020-08-11] MEDS: PANTOPRAZOLE SODIUM 40 MG TABLET.DR PO SCH (09:00)
[2020-08-11] MEDS: FUROSEMIDE 20 MG TABLET PO SCH (09:00)
[2020-08-11] MEDS: ENOXAPARIN SODIUM 30 MG/0.3 ML SQ SCH (09:00)
[2020-08-11] MEDS: MEMANTINE HCL 5 MG TABLET PO SCH ×2 (09:00→19:29)
[2020-08-11] MEDS: METOPROLOL SUCCINATE 50 MG TAB.SR.24H PO SCH (09:34)
[2020-08-11] MEDS ORDERED: PROPOFOL 10 MG/ML 20ML VIAL IV ONE (09:42)
[2020-08-11] MEDS ORDERED: LIDOCAINE PF 2% 5ML ABBOJECT ONE (09:42)
[2020-08-11] MEDS ORDERED: SODIUM CHLORIDE 0.9% 1000ML 1,000 ML IV ONE (09:45)
[2020-08-11] MEDS ORDERED: KETAMINE 50MG/ML SYRINGE 50 MG/ML DISP.SYRIN IV ONE (09:45)
[2020-08-11] MEDS ORDERED: ROPIVACAINE 0.5% 5MG/ML 30ML IJ ONE ×2 (09:46→10:05)
[2020-08-11] MEDS ORDERED: SODIUM CHLORIDE 0.9% 10 ML VIAL ONE (10:05)
[2020-08-11] MEDS ORDERED: ROCURONIUM 10MG/1ML SYR 10 MG/ML ML ONE (10:19)
[2020-08-11] MEDS ORDERED: ALBUTEROL INHALER 90MCG/INH IH ONE (11:11)
[2020-08-11] MEDS ORDERED: GLYCOPYRROLATE 1 MG/5 ML SYRINGE ONE (11:21)
[2020-08-11] MEDS ORDERED: NEOSTIGMINE 5MG/5ML SYR IV ONE (11:21)
[2020-08-11 11:25] LABS: ABG BASE EXCESS -3.4 mmol/L (-2.0-3.0); ABG HCO3 22.1 mmol/L (21.0-28.0); ABG OXYGEN SATURATION 90.4 % (95.0-99.0); ABG PCO2 42 mmHg (32-45)
[2020-08-11] MEDS ORDERED: SUGAMMADEX SODIUM 200 MG/2 ML VIAL IV ONE (12:03)
[2020-08-11 12:33] LABS: ABG BASE EXCESS -4.1 mmol/L (-2.0-3.0); ABG HCO3 20.3 mmol/L (21.0-28.0); ABG OXYGEN SATURATION 99.7 % (95.0-99.0); ABG PCO2 35 mmHg (32-45)
[2020-08-11] MEDS: ZOSYN 3.375GM+NS 50ML 50 ML IV SCH (13:00)
--- NOTE | 2020-08-11 13:13 | NUR ---
Dr Cardenas updated on patient status, pt. on bipap and following commands. Vital sgns are stable. Dr Cardenas gave the OK for patient to return to room 303
--- NOTE | 2020-08-11 13:41 | NUR ---
Dr Aviles updated on patients status. Patient on bipap per anesthesia Dr. Aviles gave OK for patient to return to room 303
--- NOTE | 2020-08-11 14:11 | NUR ---
Post op PT ARRIVED TO FLOOR FROM PACU, PATIENT IS AWAKE, ALERT AND ORIENTED X3, VOICES NO COMPLAINTS OF PAIN, LEFT HIP DRESSING D/I, GOOD CMS. 02 VIA BI PAP @ 40%, SON AT BEDSIDE.
[2020-08-11] MEDS: ATORVASTATIN CALCIUM 40 MG TABLET PO SCH (19:29)
[2020-08-11] MEDS: DONEPEZIL HCL 5 MG TAB PO SCH (19:29)
[2020-08-12] VITALS (7 sets, daily range): BP systolic 133–179; BP diastolic 52–66
[2020-08-12] MEDS: ZOSYN 3.375GM+NS 50ML 50 ML IV SCH ×2 (00:21→13:12)
[2020-08-12] MEDS: HYDRALAZINE HCL 25 MG TABLET PO SCH ×3 (04:09→22:34)
[2020-08-12] MEDS: INSULIN HUMULIN R 100 UNIT/ML 3ML SQ SCH ×4 (06:34→20:57)
[2020-08-12 07:43] LABS: BILIRUBIN,TOTAL 0.7 mg/dL (0.2-1.0); CREATININE 2.2 mg/dL (0.5-1.5); POTASSIUM 4.4 mmol/L (3.5-5.1); TOTAL PROTEIN, SERUM 5.6 g/dL (6.0-8.3)
[2020-08-12] MEDS: Vitamin B Complex/Vit C/Folic Acid PO SCH (09:19)
[2020-08-12] MEDS: AMLODIPINE BESYLATE 5 MG TAB PO SCH (09:19)
[2020-08-12] MEDS: METOPROLOL SUCCINATE 50 MG TAB.SR.24H PO SCH (09:20)
[2020-08-12] MEDS: PANTOPRAZOLE SODIUM 40 MG TABLET.DR PO SCH (09:20)
[2020-08-12] MEDS: LEVOTHYROXINE 75 MCG TABLET PO SCH (09:20)
[2020-08-12] MEDS: MEMANTINE HCL 5 MG TABLET PO SCH ×2 (09:20→20:39)
[2020-08-12] MEDS: FUROSEMIDE 20 MG TABLET PO SCH (09:21)
[2020-08-12] MEDS: ENOXAPARIN SODIUM 30 MG/0.3 ML SQ SCH (09:21)
[2020-08-12] MEDS: FERROUS SULFATE 325 MG TABLET.DR PO SCH (09:23)
[2020-08-12] MEDS: ACETAMINOPHEN 325 MG TAB PO PRN (09:24)
--- NOTE | 2020-08-12 11:42 | NUR ---
CM Note: POC CM spoke to Luna RN, as per primary nurse she spoke to Dr Cardenas's office and office was able to set up [facility] for patient. Pt has approval. Faxed updated clinicals to [facility], confirmation received. Primary nurse instructed to call report once pt ready to DC. CM to continue to follow up.
[2020-08-12] MEDS: ONDANSETRON HCL 4 MG/2 ML VIAL IV PRN (13:12)
--- NOTE | 2020-08-12 13:17 | NUR ---
PT NAUSEATED AND NOT EATING--HOLDING INSULIN----ZOFRAN GIVEN
--- NOTE | 2020-08-12 14:28 | NUR ---
DR LIU INFORMED OF NEW CONSULT VIA PHONE
[2020-08-12] MEDS ORDERED: RENAL DOSE IV ONE (15:15)
--- NOTE | 2020-08-12 18:11 | NUR ---
i have called pharmacy and spoke to sveta about starting merrem per pharmacy protocol for renal dosing. he stated he would look at it.
--- NOTE | 2020-08-12 18:27 | NUR ---
dr irwin's office informed this am of consult but i have not heard back from them and he hasn't rounded on patient so i have called his answering service to have him paged to make sure he is aware; pending call back.
[2020-08-12] MEDS ORDERED: MEROPENEM 1 GM VIAL IVP SCH (18:30)
[2020-08-12] MEDS: MEROPENEM 500 MG VIAL IVP SCH (18:57)
--- NOTE | 2020-08-12 20:00 | NUR ---
assessment note pATIENT AWAKE, ALERT,OX2, NO SOB, NO C/O PAIN AT THIS TIME, TEACH PATIENT PLAN CARE AND EXPECTED OUTCOME, REINFORCE TEACHING NEEDED, DRESSING LEFT HIP D/I, 1;1 AT BEDSIDE
[2020-08-12] MEDS: DONEPEZIL HCL 5 MG TAB PO SCH (20:39)
[2020-08-13 03:28] VITALS: BP 172/70
[2020-08-13] MEDS: TRAMADOL HCL 50 MG TABLET PO PRN ×2 (03:29→21:35)
[2020-08-13] MEDS: HYDRALAZINE HCL 25 MG TABLET PO SCH ×3 (05:17→21:34)
[2020-08-13] MEDS: MEROPENEM 500 MG VIAL IVP SCH ×2 (05:17→17:34)
[2020-08-13] MEDS: INSULIN HUMULIN R 100 UNIT/ML 3ML SQ SCH ×4 (06:00→20:47)
[2020-08-13 08:00] VITALS: BP 156/54
[2020-08-13] MEDS ORDERED: POLYETHYLENE GLYCOL 3350 17 GM POWD.PACK PO SCH (09:00)
[2020-08-13] MEDS: PANTOPRAZOLE SODIUM 40 MG TABLET.DR PO SCH (09:00)
[2020-08-13] MEDS: AMLODIPINE BESYLATE 5 MG TAB PO SCH (09:17)
[2020-08-13] MEDS: LEVOTHYROXINE 75 MCG TABLET PO SCH (09:17)
[2020-08-13] MEDS: Vitamin B Complex/Vit C/Folic Acid PO SCH (09:17)
[2020-08-13] MEDS: MEMANTINE HCL 5 MG TABLET PO SCH ×2 (09:18→19:46)
[2020-08-13] MEDS: METOPROLOL SUCCINATE 50 MG TAB.SR.24H PO SCH (09:18)
[2020-08-13] MEDS: FUROSEMIDE 20 MG TABLET PO SCH (09:19)
[2020-08-13] MEDS: ACETAMINOPHEN 325 MG TAB PO PRN (09:20)
[2020-08-13] MEDS: FERROUS SULFATE 325 MG TABLET.DR PO SCH (09:23)
[2020-08-13] MEDS: ENOXAPARIN SODIUM 30 MG/0.3 ML SQ SCH (09:25)
--- NOTE | 2020-08-13 11:00 | NUR ---
CM Note: Christopher Castro pending approval CM met with pt and son, son requested change POC, now wants pt to go to SNF for rehab. NISSA signed for Christopher Castro. Faxed order, clinicals, PT, [facility], [facility] transfer form, covid result fr 08/10, confirmation received. Spoke to June wilson/Christopher Castro. Aware dcp today/once approved. EMS arranged and faxed for today, primary nurse to call [facility] once pt ready to DC. Primary nurse Luna SHAH aware. CM to continue to follow up.
[2020-08-13 11:02] VITALS: BP 131/40
--- NOTE | 2020-08-13 11:53 | NUR ---
kerlix wrap removed from reported skin tear on left arm pt has 2 noted skin tears near elbow---#1 is 5cm long and approx. no depth or width--#2 is 5cm long by 1.5cm wide and is not approx. the surrounding tissue is bruised, scant fresh bloody drainage noted after removing the kerlix; the kerlix had to be soaked in normal saline to get it off because it was stuck to the wounds; i then applied vaseline gauze and non adhearant pads then wrapped in kerlix; dr durant from wound care clinic was rounding at that time and i showed him the picutures i had just taken and he said it was appropriate to apply vaseline gauze and they would cont. to follow the patient. pictures of wound developed and placed in chart.
--- NOTE | 2020-08-13 14:54 | NUR ---
covid rapid and pcr collected and sent to lab.
[2020-08-13 16:33] VITALS: BP 162/66
--- NOTE | 2020-08-13 19:20 | NUR ---
family spoke to contact number quentin bill daughter in law informed of discharge order and pending transfer to [facility], family aware of pending discharge [facility]
--- NOTE | 2020-08-13 19:30 | NUR ---
DRESSING DRESSING CHANGED LEFT LATERAL HIP, INCISION D/I WITH 22 XAVI INTACT, CLEANSED WITH BETADINE, DAB DRY , APPLY 4X4,ABD and hypafix, right ac 2 gauge catheter leaking discontinued, no redness or swelling noted apply 2x2 and tape, changed dressing left posterior forearm , skin tear , scant amount of seros sanguinoues drainage, covered with vaseline gauze, 4x4 and kerlix roll anbd tape, tolerated well
--- NOTE | 2020-08-13 19:35 | NUR ---
REPORT REPORT GIVEN TO KARIE LIZARRAGA LVN AT [facility], PER MRS LIZARRAGA WILL SEND ALLEY CLEANER TO [facility] PATIENT
[2020-08-13] MEDS: DONEPEZIL HCL 5 MG TAB PO SCH (19:46)
[2020-08-13] MEDS: ATORVASTATIN CALCIUM 40 MG TABLET PO SCH (19:46)
[2020-08-13 20:16] VITALS: BP 143/58
--- NOTE | 2020-08-13 21:17 | NUR ---
transfer called bobo renae regarding pending transfer, per bobo gutierrez extruder operator horizontal bobtail driver running late but will orange picker patient as soon as possible
--- NOTE | 2020-08-13 23:00 | NUR ---
DISCHARGE DISCHARGE TO [facility] VIA W/C WITH OXYGEN AT [address], TRANSPORTER DID NOT BRING OXYGEN TANK, [facility] PORTABLE OXYGEN TANK TAKEN WITH PATIENT, PER TRANSPORTER WILL DROP OFF IN THE ER, BATT PACKER NANETTE PEÑA R.N MADE AWARE THAT [facility] WITH BORROW PORTABLE OXYGEN FOR PATIENT TRANSFER TO [facility]
--- NOTE | 2020-08-14 08:36 | NUR ---
CM Note: LATE ENTRY Christopher Castro approval CM spoke to June wilson/Christopher Castro, pt received approval late yesterday and was able to transfer pt safely to facility.
== END 2020-08-13 23:01 | DRG 521 ==
LOC: EDH 13:52 → EDHIP 16:30 → 3AH 18:19
PROVIDERS: ADMIT Internal Medicine; ATTEND Internal Medicine
PROC: 5A09357 Assistance with Respiratory Ventilation, Less than 24 Consecutive Hours, Continuous Positive Airway Pressure (ICD-10-PCS; 2020-08-11)
PROC: 0SRS0J9 Replacement of Left Hip Joint, Femoral Surface with Synthetic Substitute, Cemented, Open Approach (ICD-10-PCS; principal; 2020-08-11 10:10)
DX: S72.002A Fracture of unspecified part of neck of left femur, initial encounter for closed fracture (principal); J96.00 Acute respiratory failure, unspecified whether with hypoxia or hypercapnia; M48.56XA Collapsed vertebra, not elsewhere classified, lumbar region, initial encounter for fracture; N18.4 Chronic kidney disease, stage 4 (severe); N17.9 Acute kidney failure, unspecified; N39.0 Urinary tract infection, site not specified; E78.5 Hyperlipidemia, unspecified; Z82.49 Family history of ischemic heart disease and other diseases of the circulatory system; Z83.3 Family history of diabetes mellitus; R29.890 Loss of height; I12.9 Hypertensive chronic kidney disease with stage 1 through stage 4 chronic kidney disease, or unspecified chronic kidney disease; E11.22 Type 2 diabetes mellitus with diabetic chronic kidney disease; Z88.5 Allergy status to narcotic agent; F03.90 Unspecified dementia, unspecified severity, without behavioral disturbance, psychotic disturbance, mood disturbance, and anxiety; E66.9 Obesity, unspecified; Z20.828 Contact with and (suspected) exposure to other viral communicable diseases; J84.10 Pulmonary fibrosis, unspecified
CPT/HCPCS: 36415; 70450; 71045; 72040; 72192; 76770; 80048; 80053; 81001; 82435; 82550; 82570; 82728; 82803; 82947; 82948; 83036; 83540; 83550; 83605; 83735; 84100; 84132; 84145; 84295; 84300; 84443; 84484; 85018; 85025; 85610; 85730; 87077; 87088; 87186; 87426; 93005; 93306; 93356; 94660; 97039; C1776; G0378; J0360; J0696; J1170; J1650; J1815; J2001; J2175; J2185; J2405; J2543; J2704; J2710; J2795; J3490; J7030; J7040; U0003